=== PATIENT | female | born 1975 | race Caucasian/White ===

== ENCOUNTER → 2016-08-08 | Outpatient (CLI) | payer BC | END | disposition home or self-care (01) | LOC: RAD.S 07-01 10:34 | DX: R92.8 Other abnormal and inconclusive findings on diagnostic imaging of breast (principal) ==

== ENCOUNTER → 2016-08-13 | Outpatient (CLI) | payer BC | END | disposition home or self-care (01) | LOC: RAD.S 15:51 | DX: N64.4 Mastodynia (principal) ==